=== PATIENT | male | born 1970 | race Two or more races ===

== ENCOUNTER 2019-12-31 13:14 | Inpatient (IN) ==
[2019-12-31] MEDS ORDERED: LEVSIN/MAALOX/LIDOC VISC PO ONE (14:05)
[2019-12-31] MEDS ORDERED: ZOFRAN INJ 4 MG VIAL IVP ONE (14:05)
[2019-12-31] MEDS ORDERED: PROTONIX INJ 40 MG VIAL IVP ONE (14:05)
[2019-12-31] MEDS ORDERED: ZOFRAN INJ 4 MG VIAL ONE (14:10)
[2019-12-31] MEDS ORDERED: PROTONIX INJ 40 MG VIAL ONE (14:11)
--- NOTE | 2019-12-31 14:13 | DR.ABDMALE ---
HPI Time seen Time Seen by Provider: 12/31/19 13:54 PCP Primary Care Physician: LOPEZ Triana Complaint Chief Complaint:: nausea, vomiting, abd. pain Mode of arrival Mode of Arrival: Ambulatory Timing Onset of Chief Complaint: 12/30/19 PMH PMH Past Medical History: Yes Past Medical History: Hypertension Past Surgical History: Yes Surgical History: Appendectomy Family History History of Family Medical Conditions: Yes Family Medical History: Diabetes Mellitus and Hypertension Social History Does patient currently use any type of tobacco product: No Have you used tobacco products in the last 12 months: No Does any household member use tobacco: Yes Alcohol Use: Occasionally Do you use any recreational Drugs:: Yes Lives With: Alone and Spouse Lives Where: Home Infectious screening In the last 2 months have you had wt loss of >10#?: NO Have you had fever, night sweats or hemotysis?: No Have you traveled outside the country in the last 6 months?: No Isolation: Standard ROS Review of Systems Constitutional: Weakness Eyes: No Symptoms Reported ENTM: No Symptoms Reported Respiratoy: No Symptoms Reported Cardiovascular: No Symptoms Reported Gastrointestinal/Abdominal: See HPI Genitourinary: Dysuria Neurological: No Symptoms Reported Musculoskeletal: No Symptoms Reported Integumentary: No Symptoms Reported Hematologic/Lymphatic: No Symptoms Reported Endocrine: No Symptoms Reported Psychiatric: No Symptoms Reported All Other Systems: Reviewed and Negative PE Vital Signs Vital Signs: Temp Pulse Resp BP Pulse Ox 12/31/19 18:03 20 12/31/19 15:56 100 H 20 143/87 96 12/31/19 15:27 20 12/31/19 13:55 123 H 20 168/103 96 12/31/19 13:15 99.1 F 142 H 24 132/89 96 02/13/14 09:12 184/99 General Limitations: No Limitations General Appearance: Alert and Other (pt with nausea ) Head Head Exam: Normal Inspection, Atraumatic and Normocephalic Eyes Eye exam: Normal Appearance, PERRL and EOMI; negative Scleral Icterus, Conjunctival Injection and Nystagmus ENT ENT Exam: Normal Exam, Normal Oropharynx and Mucous Membranes Moist Neck Neck Exam: Normal Inspection, Full ROM and Trachea Midline; negative Tenderness, Meningismus and Lymphadenopathy Chest Chest Inspection: Normal Inspection and Symmetric Chest Wall Rise; negative Tenderness Respiratory Respiratory Exam: Normal Lung Sounds Bilat; negative Accessory Muscle Use and Chest Wall Tenderness Respiratory Exam: Bilateral: Clear to Auscultation Cardiovascular Cardiovascular Exam: Regular Rate, Normal Rhythm and Normal Heart Sounds Abdominal Exam Abdominal Exam: Normal Inspection, Normal Bowel Sounds and Soft; negative Distention, Tenderness, Rebound and Rigidity Rectal Rectal Exam: Deferred Back Back Exam: Normal Inspection and Full ROM; negative Tenderness, (R) CVA Tenderness, (L) CVA Tenderness, Muscle Spasm, Paraspinal Tenderness and Vertebral Tenderness Extremeties Extremities Exam: Normal Inspection and Full ROM; negative Tenderness, Normal Capillary Refill, Edema and Joint Swelling Neurologic Neurological Exam: Alert, Oriented X3 and Normal Gait; negative Motor Sensory Deficit Psychiatric Psychiatric Exam: Normal Affect and Normal Mood; negative Depressed, Agitated, Anxious, Flat Affect, Manic, Homicidal Ideation and Suicidal Ideation Skin Skin Exam: Warm, Dry, Intact and Normal Color; negative Rash, Cyanosis, Diaphoresis, Erythema, Pallor and Mottled ROR Labs Reviewed Result Diagrams: 12/31/19 14:19 12/31/19 14: Laboratory: WBC 17.4 X10^3/uL (3.6-10.0) H 12/31/19 14:19 RBC 5.50 X10^6/uL (4.7-6.0) 12/31/19 14:19 Hgb 16.7 g/dL (13.5-18.0) 12/31/19 14: Hct 49.1 % (42.0-54.0) 12/31/19 14: MCV 89.4 fL (80.0-100.0) 12/31/19 14: MCH 30.3 pg (27.0-34.0) 12/31/19 14: MCHC 33.9 g/dL (33.0-35.0) 12/31/19 14:19 RDW 14.4 % (11.6-16.5) 12/31/19 14: Plt Count 112 X10^3/uL (150.0-450.0) L 12/31/19 14: Plt Count Comment Decreased (ADEQUATE) 12/31/19 14:19 MPV 8.3 fL (7.4-11.0) 12/31/19 14: Neut % (Auto) 92.5 % (42.0-75.0) H 12/31/19 14:19 Lymph % (Auto) 3.8 % (21.0-51.0) L 12/31/19 14:19 Angelina % (Auto) 3.6 % (0.0-13.0) 12/31/19 14:19 Eos % (Auto) 0.0 % (0.9-2.9) L 12/31/19 14:19 Baso % (Auto) 0.1 % (0.2-1.0) L 12/31/19 14:19 Neut # (Auto) 16.1 x10^3/uL (2.2-4.8) H 12/31/19 14:19 Lymph # (Auto) 0.7 X10^3/uL (1.3-2.9) L 12/31/19 14:19 Angelina # (Auto) 0.6 x10^3/uL (0.3-0.8) 12/31/19 14:19 Eos # (Auto) 0.0 x10^3/uL (0.0-0.2) 12/31/19 14:19 Baso # (Auto) 0.0 X10^3/uL (0.0-0.1) 12/31/19 14:19 Absolute Nucleated RBC 0.0 /100WBC 12/31/19 14:19 Total Counted 100 12/31/19 14:19 Neutrophils % (Manual) 86 % (39-76) H 12/31/19 14:19 Band Neutrophils % 6 % (0-10) 12/31/19 14:19 Lymphocytes % (Manual) 7 % (13-43) L 12/31/19 14:19 Monocytes % (Manual) 1 % (4-9) L 12/31/19 14:19 Plt Morphology Comment Normal (NORMAL) 12/31/19 14:19 RBC Morphology Normal (NORMAL) 12/31/19 14:19 Sodium 133 mmol/L (136-145) L 12/31/19 14:19 Corrected Sodium 135 mmol/L (136-145) L 12/31/19 14:19 Potassium 4.1 mmol/L (3.5-5.1) 12/31/19 14:19 Chloride 97 mmol/L (98-107) L 12/31/19 14:19 Carbon Dioxide 24.5 mmol/L (21-32) 12/31/19 14:19 BUN 12 mg/dL (7-18) 12/31/19 14:19 Creatinine 1.30 mg/dL (0.70-1.30) 12/31/19 14:19 Est GFR (MDRD) Af Amer > 60 (>60) 12/31/19 14:19 Est GFR (MDRD) Non-Af > 60 (>60) 12/31/19 14:19 Glucose 172 mg/dL (65-99) H 12/31/19 14:19 Calcium 8.2 mg/dL (8.5-10.1) L 12/31/19 14:19 Corrected Calcium 8.8 mg/dL (8.5-10.1) 12/31/19 14:19 Total Bilirubin 4.40 mg/dL (0.2-1.0) H 12/31/19 14:19 AST 143 Units/L (15-37) H 12/31/19 14:19 ALT 271 Units/L (12-78) H 12/31/19 14:19 Alkaline Phosphatase 114 Units/L (46-116) 12/31/19 14:19 Total Protein 7.0 g/dL (6.4-8.2) 12/31/19 14:19 Albumin 3.2 g/dL (3.4-5.0) L 12/31/19 14:19 Globulin 3.8 g/dL (2.5-4.5) 12/31/19 14:19 Albumin/Globulin Ratio 0.8 Ratio (1.1-2.1) L 12/31/19 14:19 Amylase 86 Units/L (25-115) 12/31/19 14:19 Lipase 964 Units/L (73-393) H 12/31/19 14:19 Opioid Opioid Risk Tool Age (Kwabena box if 16-45): No History of Preadolescent Sexual Abuse: No Total: 0 Total Score Risk Category: Low Risk Copyright: Joshua NUNES predicting aberrant behaviors Diagnosis Discharge Problem: Acute pancreatitis, Deep vein thrombosis of portal vein
[2019-12-31] MEDS ORDERED: LEVSIN/MAALOX/LIDOC VISC ONE (14:14)
[2019-12-31 14:33] LABS: BASOPHILS % (AUTO) 0.1 % (0.2-1.0); HEMATOCRIT 49.1 % (42.0-54.0); HEMOGLOBIN 16.7 g/dL (13.5-18.0); LYMPHOCYTES # (AUTO) 0.7 X10^3/uL (1.3-2.9); LYMPHOCYTES % (AUTO) 3.8 % (21.0-51.0); MEAN CORPUSCULAR HEMOGLOBIN 30.3 pg (27.0-34.0); MEAN CORPUSCULAR HGB CONC 33.9 g/dL (33.0-35.0); MEAN CORPUSCULAR VOLUME 89.4 fL (80.0-100.0); MEAN PLATELET VOLUME 8.3 fL (7.4-11.0); MONOCYTES # (AUTO) 0.6 x10^3/uL (0.3-0.8); MONOCYTES % (AUTO) 3.6 % (0.0-13.0); NEUTROPHILS # (AUTO) 16.1 x10^3/uL (2.2-4.8); NEUTROPHILS % (AUTO) 92.5 % (42.0-75.0); PLATELET COUNT 112 X10^3/uL (150.0-450.0); RED CELL DISTRIBUTION WIDTH 14.4 % (11.6-16.5); WHITE BLOOD COUNT 17.4 X10^3/uL (3.6-10.0)
[2019-12-31] MEDS ORDERED: NS 1000 ML 1,000 ML IV ONE (14:35)
[2019-12-31 14:37] LABS: ALANINE AMINOTRANSFERASE 271 Units/L (12-78); ALBUMIN 3.2 g/dL (3.4-5.0); ALKALINE PHOSPHATASE 114 Units/L (46-116); AMYLASE 86 Units/L (25-115); ASPARTATE AMINO TRANSFERASE 143 Units/L (15-37); BLOOD UREA NITROGEN 12 mg/dL (7-18); CALCIUM 8.2 mg/dL (8.5-10.1); CARBON DIOXIDE 24.5 mmol/L (21-32); CHLORIDE 97 mmol/L (98-107); COR CA(FOR HYPOALB) 8.8 mg/dL (8.5-10.1); COR NA(FOR HYPERGLY) 135 mmol/L (136-145); LIPASE 964 Units/L (73-393); SODIUM 133 mmol/L (136-145); eGFR NON BLACK RACES > 60 (>60)
[2019-12-31] MEDS ORDERED: NS 1000 ML 1,000 ML ONE (14:40)
[2019-12-31 14:49] LABS: BAND NEUTROPHILS % 6 % (0-10); PLATELET MORPHOLOGY COMMENT NORMAL (NORMAL)
--- NOTE | 2019-12-31 15:03 | RAD ---
HISTORYABD PAIN, N/VSTUDYACUTE ABDOMEN SERIESCOMPARISONNoneTECHNIQUEFive view acute abdomen series.FINDINGSThe cardiac and mediastinal contours are within normal limits. The lungs are clear without focal consolidation or segmental collapse. No pleural effusion or pneumothorax.Dilated bowel likely small bowel with air-fluid levels. The bowel measures up to 6 cm in the right upper quadrant. No free air identified. No pneumatosis or portal venous gas. There is gas in the colon.IMPRESSIONFindings consistent with small-bowel obstruction. Consider CT for further evaluation.Electronically signed by: Jean Morgan (Dec 31, 2019 15:03:07)
[2019-12-31] MEDS ORDERED: ZOSYN VIAL 3.375 GRAMS 3.375 G in NS 100 ML IV + SPIKE MINIBAG* 100 ML IV ONE (15:17)
[2019-12-31] MEDS ORDERED: ZOSYN VIAL 3.375 GRAMS IV ONE (15:49)
[2019-12-31] MEDS ORDERED: NS 100 ML IV 100 ML IV ONE (15:50)
[2019-12-31] MEDS ORDERED: CIPRO IV 200 MG PREMIX* 200 MG/100 ML BAG IV ONE (15:56)
[2019-12-31] MEDS ORDERED: FLAGYL IV PREMIX 500 MG BAG 500 MG/100 ML BAG IV ONE ×2 (15:56→15:58)
[2019-12-31] MEDS ORDERED: CIPRO IV 400 MG PREMIX* 400 MG/200 ML IV.SOLN. IV ONE (15:58)
--- NOTE | 2019-12-31 17:43 | CT ---
HISTORYABD PAIN, N/V, SBOSTUDYABDOMEN/PELVIS WITH CONCOMPARISONNoneTECHNIQUEMultiple axial images of the abdomen and pelvis were obtained from the lung bases to the pubic symphysis after the administration of IV contrast. Dose reduction techniques including Automated Exposure Control (AEC) and adjustment of mA and kV were utilized.FINDINGSThe visualized portions of the lung bases demonstrates a tiny 3 mm calcified right lower lobe granuloma.. The liver demonstrates probable fatty infiltration. There is some stranding around the tail of the pancreas and in the lateral conal fascia compatible with acute pancreatitis. The pancreatic tissue appears to enhance normally. There is some associated soft tissue density in the superior mesenteric vein extending into the portal vein compatible with thrombus. There is no evidence for any splenic artery aneurysm at this time. Solid organs otherwise unremarkable in their contrast appearance. The gallbladder is unremarkable in its CT appearance . No significant mesenteric lymphadenopathy or stranding can be observed. No free fluid or free air is seen within the abdomen. No bowel wall thickening or bowel dilatation is present. The colon demonstrates some wall thickening involving the cecum a small amount of contrast this lumen. This may be due to timing of the contrast although follow-up colonoscopy may be of benefit to exclude the possibility underlying lesion.. Specifically, there is no diverticulosis noted within the sigmoid colon. The appendix is not seen there are no secondary signs to suggest appendicitis. The urinary bladder is grossly unremarkable. The bony structures are grossly intact.IMPRESSIONFindings of acute pancreatitis as above with thrombus involving the SMV and portal vein. There is no evidence for pancreatic necrosis or splenic artery aneurysm at this time.Nonspecific cecal wall thickening as aboveProbable fatty liver.Electronically signed by: ASA JIMENEZ (Dec 31, 2019 17:41:52)
[2019-12-31] MEDS ORDERED: DILAUDID INJ ONE (17:54)
[2019-12-31] MEDS ORDERED: D5 1/2 NS 1000 ML 1,000 ML IV ONE (17:58)
[2019-12-31] MEDS: D5 1/2 NS 1000 ML 1,000 ML IV SCH (18:01)
--- NOTE | 2019-12-31 19:04 | US ---
HISTORY:Nausea, vomitingStudy: Right upper quadrant abdominal ultrasoundComparison: CT same dayTechnique: Multiple hargrove scale and color flow Doppler images of the right upper quadrant were obtained.Findings:There is diffuse fatty infiltration of the liver parenchyma. Liver is normal in size. No mass identified. Partially occlusive thrombus seen in the portal vein. Gallbladder appears normal. The common bile duct measures 4 mm. No pericholecystic fluid or gallbladder wall thickening. No sonographic Duffy's sign reported.The right kidney appears normal in size without focal parenchymal mass or nephrolithiasis. The right kidney measures 12 x 6 x 6 centimeters. No evidence of hydronephrosis. Pancreas was obscured by bowel gas. IVC also not visualized.IMPRESSION:1. Fatty infiltration of the liver with partially occlusive thrombus in the portal vein.2. Normal sonographic appearance of the gallbladder.3. Pancreas obscured by bowel gas.Electronically signed by: SHRUTHI HAHN (Dec 31, 2019 19:03:17)
[2019-12-31] MEDS ORDERED: LOVENOX INJ 40 MG SYR SC SCH (21:00)
[2020-01-01] MEDS ORDERED: HEPARIN SODIUM INJ 5000 UNITS IVP ONE (00:39)
[2020-01-01] MEDS: HEPARIN SODIUM IN D5W 25,000 UNITS/500 ML BAG IV PRN ×2 (01:00→22:00)
[2020-01-01 01:21] LABS: BILIRUBIN,URINE 1+ (NEGATIVE); BLOOD/HEMOGLOBIN,URINE 4+ (NEGATIVE); GLUCOSE, URINE NEGATIVE (NEGATIVE); KETONES,URINE 1+ (NEGATIVE); LEUKOCYTE ESTERASE ,URINE 1+ (NEGATIVE); NITRITES,URINE POSITIVE (NEGATIVE); PH,URINE 6.5 (5.0 - 8.0); PROTEIN,URINE 2+ (NEGATIVE); UROBILINOGEN,URINE 4+ (NORMAL)
[2020-01-01] MEDS: D5 1/2 NS 1000 ML 1,000 ML IV SCH ×5 (01:22→22:00)
[2020-01-01 01:32] LABS: APPEARANCE,URINE CLEAR (CLEAR)
[2020-01-01 01:33] LABS: BACTERIA,URINE TRACE /HPF (NEGATIVE); COLOR,URINE ORANGE (YELLOW); RBC,URINE 0-2 /HPF (0-3); SQUAMOUS EPITHELIAL CELL,UR RARE /HPF (NEGATIVE)
[2020-01-01 03:03] VITALS: BMI 39.3
--- NOTE | 2020-01-01 05:53 | RAD ---
HISTORYBOWEL OBSTRUCTION FOLLOW UP HTN, [id number]/14/2020FINDINGSEvaluation of the abdomen demonstrates a gas-filled loops of large and small bowel similar prior study.. . The urinary bladder is opacified. No pathological s oft tissue mass or calcification can be observed. The bony structures are grossly intact.IMPRESSIONG as-filled loops of large and small bowel consistent with small bowel obstruction; no appreciable bourne ge from previous 12/31/2019Electronically signed by: Ck Guevara (Jan 01, 2020 05:52:37)
[2020-01-01] MEDS ORDERED: PROTONIX INJ 40 MG VIAL ONE (07:38)
[2020-01-01 07:41] LABS: BASOPHILS % (AUTO) 0.3 % (0.2-1.0); EOSINOPHILS % (AUTO) 0.3 % (0.9-2.9); HEMATOCRIT 43.2 % (42.0-54.0); HEMOGLOBIN 14.7 g/dL (13.5-18.0); LYMPHOCYTES # (AUTO) 1.5 X10^3/uL (1.3-2.9); LYMPHOCYTES % (AUTO) 10.4 % (21.0-51.0); MEAN CORPUSCULAR HGB CONC 33.9 g/dL (33.0-35.0); MEAN CORPUSCULAR VOLUME 88.5 fL (80.0-100.0); MEAN PLATELET VOLUME 8.5 fL (7.4-11.0); MONOCYTES # (AUTO) 0.8 x10^3/uL (0.3-0.8); MONOCYTES % (AUTO) 5.4 % (0.0-13.0); NEUTROPHILS # (AUTO) 12.4 x10^3/uL (2.2-4.8); NEUTROPHILS % (AUTO) 83.6 % (42.0-75.0); PLATELET COUNT 78 X10^3/uL (150.0-450.0); RED BLOOD COUNT 4.88 X10^6/uL (4.7-6.0); RED CELL DISTRIBUTION WIDTH 14.4 % (11.6-16.5); WHITE BLOOD COUNT 14.8 X10^3/uL (3.6-10.0)
[2020-01-01 07:48] LABS: ALANINE AMINOTRANSFERASE 179 Units/L (12-78); ALBUMIN 2.4 g/dL (3.4-5.0); ALKALINE PHOSPHATASE 91 Units/L (46-116); ASPARTATE AMINO TRANSFERASE 88 Units/L (15-37); BLOOD UREA NITROGEN 10 mg/dL (7-18); CARBON DIOXIDE 27.2 mmol/L (21-32); CHLORIDE 100 mmol/L (98-107); COR CA(FOR HYPOALB) 9.3 mg/dL (8.5-10.1); COR NA(FOR HYPERGLY) 134 mmol/L (136-145); CREATININE 0.83 mg/dL (0.70-1.30); SODIUM 133 mmol/L (136-145); TOTAL PROTEIN 5.9 g/dL (6.4-8.2); eGFR NON BLACK RACES > 60 (>60)
[2020-01-01] MEDS: PROTONIX INJ 40 MG VIAL IVP SCH ×2 (08:00→21:33)
[2020-01-01] MEDS ORDERED: PROTONIX INJ 40 MG VIAL IVP SCH (09:00)
[2020-01-01 09:21] LABS: BLOOD ALCOHOL < 3 mg/dL (0-19.9)
[2020-01-01 09:33] LABS: LACTIC ACID 1.6 mmol/L (0.4-2.0)
--- NOTE | 2020-01-01 10:37 | DR.PROGNOT ---
Hospital Progress Notes - Progress Note for Day of: Progress Note Date: 01/01/20 - Chief Complaint Chief Complaint: still having upper abdominal pain but feeling better . no vomiting today . improving pancreatic enzymes and LFTs. ammonia 53. GB US showed no stones . afebrile . - Past Medical Family Social History Past Med/Fam/Surg Hx: No changes since H&P Allergies: Allergies penicillin G Allergy (Verified 12/31/19 15:36) - Review Of Systems ROS: No change since H&P - Vital Signs Vital Signs: Temperature 97.8 F Pulse Rate [Left] 105 Pulse Rate 100 Respiratory Rate 20 Blood Pressure [Left Arm] 155/82 Blood Pressure 143/87 O2 Sat by Pulse Oximetry 94 - Physical Exam Oriented: Normal Eyes: Other (slightly ecteric ) Ear: Normal Nose: Normal Respiratory: Normal Cardiovascular: Normal : Normal GI:Auscultation: Decreased GI: Tenderness: Epigastric (soft abdomen with epigastric tenderness , no rebound . BS hypoactive .) Skin: Normal Musculoskeletal: Normal Speech Pattern: Clear, Appropriate - Laboratory and Diagnostics Result Diagrams: 01/01/20 07:22 01/01/20 07:22 Labs: Laboratory WBC 14.8 X10^3/uL (3.6-10.0) H 01/01/20 07:22 RBC 4.88 X10^6/uL (4.7-6.0) 01/01/20 07:22 Hgb 14.7 g/dL (13.5-18.0) D 01/01/20 07:22 Hct 43.2 % (42.0-54.0) 01/01/20 07:22 MCV 88.5 fL (80.0-100.0) 01/01/20 07:22 MCH 30.0 pg (27.0-34.0) 01/01/20 07:22 MCHC 33.9 g/dL (33.0-35.0) 01/01/20 07:22 RDW 14.4 % (11.6-16.5) 01/01/20 07:22 Plt Count 78 X10^3/uL (150.0-450.0) L 01/01/20 07:22 Plt Count Comment Decreased (ADEQUATE) 12/31/19 14:19 MPV 8.5 fL (7.4-11.0) 01/01/20 07:22 Neut % (Auto) 83.6 % (42.0-75.0) H 01/01/20 07:22 Lymph % (Auto) 10.4 % (21.0-51.0) L 01/01/20 07:22 [place] % (Auto) 5.4 % (0.0-13.0) 01/01/20 07:22 Eos % (Auto) 0.3 % (0.9-2.9) L 01/01/20 07:22 Baso % (Auto) 0.3 % (0.2-1.0) 01/01/20 07:22 Neut # (Auto) 12.4 x10^3/uL (2.2-4.8) H 01/01/20 07:22 Lymph # (Auto) 1.5 X10^3/uL (1.3-2.9) 01/01/20 07:22 [place] # (Auto) 0.8 x10^3/uL (0.3-0.8) 01/01/20 07:22 Eos # (Auto) 0.0 x10^3/uL (0.0-0.2) 01/01/20 07:22 Baso # (Auto) 0.0 X10^3/uL (0.0-0.1) 01/01/20 07:22 Absolute Nucleated RBC 0.1 /100WBC 01/01/20 07:22 Total Counted 100 12/31/19 14:19 Neutrophils % (Manual) 86 % (39-76) H 12/31/19 14:19 Band Neutrophils % 6 % (0-10) 12/31/19 14:19 Lymphocytes % (Manual) 7 % (13-43) L 12/31/19 14:19 Monocytes % (Manual) 1 % (4-9) L 12/31/19 14:19 Plt Morphology Comment Normal (NORMAL) 12/31/19 14:19 RBC Morphology Normal (NORMAL) 12/31/19 14:19 PT 15.4 SECONDS (11.8-14.3) 01/01/20 07:22 INR Target Range - 01/01/20 07: INR 1.25 (0.8-1.3) 01/01/20 07:22 APTT 107.3 SECONDS (22.9-36.5) H 01/01/20 07:22 PTT Comment - 01/01/20 07:22 Sodium 133 mmol/L (136-145) L 01/01/20 07:22 Corrected Sodium 134 mmol/L (136-145) L 01/01/20 07:22 Potassium 4.0 mmol/L (3.5-5.1) 01/01/20 07:22 Chloride 100 mmol/L (98-107) 01/01/20 07:22 Carbon Dioxide 27.2 mmol/L (21-32) 01/01/20 07:22 BUN 10 mg/dL (7-18) 01/01/20 07:22 Creatinine 0.83 mg/dL (0.70-1.30) 01/01/20 07:22 Est GFR (MDRD) Af Amer > 60 (>60) 01/01/20 07:22 Est GFR (MDRD) Non-Af > 60 (>60) 01/01/20 07:22 Glucose 128 mg/dL (65-99) H 01/01/20 07:22 POC Glucose (mg/dL) 139 mg/dL (65-99) H 01/01/20 05:23 Lactic Acid 1.6 mmol/L (0.4-2.0) 01/01/20 08:50 Calcium 8.0 mg/dL (8.5-10.1) L 01/01/20 07:22 Corrected Calcium 9.3 mg/dL (8.5-10.1) 01/01/20 07:22 Total Bilirubin 3.30 mg/dL (0.2-1.0) H 01/01/20 07:22 AST 88 Units/L (15-37) H 01/01/20 07:22 ALT 179 Units/L (12-78) H 01/01/20 07:22 Alkaline Phosphatase 91 Units/L (46-116) 01/01/20 07:22 Ammonia 53 umol/L (11-32) H 01/01/20 08:50 Total Protein 5.9 g/dL (6.4-8.2) L 01/01/20 07:22 Albumin 2.4 g/dL (3.4-5.0) L 01/01/20 07:22 Globulin 3.5 g/dL (2.5-4.5) 01/01/20 07:22 Albumin/Globulin Ratio 0.7 Ratio (1.1-2.1) L 01/01/20 07:22 Amylase 86 Units/L (25-115) 12/31/19 14:19 Lipase 964 Units/L (73-393) H 12/31/19 14:19 Specimen Type Clean catch urine 01/01/20 00:30 Urine Color [place] (YELLOW) 01/01/20 00:30 Urine Appearance Clear (CLEAR) 01/01/20 00:30 Urine pH 6.5 (5.0 - 8.0) 01/01/20 00:30 Ur Specific [place] 1.010 (1.000-1.030) 01/01/20 00:30 Urine Protein 2+ (NEGATIVE) 01/01/20 00:30 Urine Glucose (UA) Negative (NEGATIVE) 01/01/20 00:30 Urine Ketones 1+ (NEGATIVE) 01/01/20 00:30 Urine Occult Blood 4+ (NEGATIVE) 01/01/20 00:30 Urine Nitrite Positive (NEGATIVE) 01/01/20 00:30 Urine Bilirubin 1+ (NEGATIVE) 01/01/20 00:30 Urine Urobilinogen 4+ (NORMAL) 01/01/20 00:30 Ur Leukocyte Esterase 1+ (NEGATIVE) 01/01/20 00:30 Urine RBC 0-2 /HPF (0-3) 01/01/20 00:30 Urine WBC 0-2 /HPF (0-5) 01/01/20 00:30 Ur Squamous Epith Cells Rare /HPF (NEGATIVE) 01/01/20 00:30 Urine Bacteria Trace /HPF (NEGATIVE) 01/01/20 00:30 Ur Culture Indicated? No/not indicated 01/01/20 00:30 Ethyl Alcohol mg/dL < 3 mg/dL (0-19.9) 01/01/20 08:50 - Assessment and Plan 1: improving acute pancreatitis . thrombus in SMV ( related to pancreatitis ). alcohol abuse . fatty liver . same NPO . IVF . ATB . Antyicoagulant . - Problem Patient Problems: Patient Problems Acute pancreatitis (Acute) K85.90 Deep vein thrombosis of portal vein (Acute) I81
[2020-01-01] MEDS: DILAUDID INJ IVP PRN (11:55)
--- NOTE | 2020-01-01 18:28 | DR.H&P ---
H&P - History & Physical for Day of: H&P Date: 01/01/20 - Chief Complaint Chief Complaint: ABDOMINAL PAIN, [place] - History of Present Illness History of Present Illness: PT IS 49 HM ER ADMISSION AFTER PRESENTING WITH CO INTRACTABLE ABDOMINAL PAIN, N/V. PT REPORTS HX OF HYPERTENSION, NO DM OR CARDIAC DISEASE. PT DENIES ANY KNOWN COVID EXPOSURE, FEVER, SOB, OR CCC. PT HAD CT ABD PELVIS IN ER WITH ACUTE PACREATITIS AND HEPATIC VENOUS THROMBUS. PT ADMITTED TO ICU ON HEPARIN DRIP. - Past Medical History Past Medical History: Hypertension - Past Surgical History Surgical History: Appendectomy - Family History Family Medical History: Diabetes Mellitus, Hypertension - Social History Does patient currently use any type of tobacco product: No Have you used tobacco products in the last 12 months: No Does any household member use tobacco: Yes Alcohol Use: Occasionally, Heavy Drug Use: None - Medications Home Medications: penicillin G Allergy (Verified 12/31/19 15:36) CONTINUE taking the following medications lisinopril 40 mg PO DAILY 12/31/19 [History] - Review of Systems Constitutional: Weakness Eyes: No Symptoms Reported ENT: No Symptoms Reported Respiratory: denies: Shortness of Breath Cardiovascular: denies: Chest Pain Gastrointestinal: Nausea, Vomiting, Abdominal Pain, Diarrhea Genitourinary: No Symptoms Reported Musculoskeletal: No Symptoms Reported Skin: No Symptoms Reported Neurological: No Symptoms Reported - Physical Exam Vital Signs: Temperature 98.4 F Pulse Rate [Left] 108 Pulse Rate 100 Respiratory Rate 20 Blood Pressure [Left Arm] 143/79 Blood Pressure 143/87 O2 Sat by Pulse Oximetry 94 Oriented: Normal Eyes: Normal Ear: Normal Nose: Normal Throat: Normal Respiratory: Clear Throughout Cardiovascular: Normal. negative: Edema : Normal Auscultation: Bowel Sounds: Normal Tenderness: Diffuse, LUQ Skin: Decreased Turgur Musculoskeletal: Normal Psychiatric: Normal Mood Description: Calm Speech Pattern: Clear, Appropriate - Assessment/Plan (1) Acute pancreatitis Status: Acute Plan: ADMIT, NPO. SURGICAL CONSULT, HEPARIN DRIP. STRICT I&OS, IV HYDRATION PAIN CONTROL. LACTIC ACID LEVEL, AMMONIA LEVEL. IV ATBX THERAPY, PPI THERAPY, PT/PTT/INR. VERIFY HOME MEDICATION, CARDIAC MONITORING (2) Splenic vein thrombosis Status: Acute (3) Acute liver disease Status: Acute (4) Hypertension Qualifiers: Hypertension type: renovascular hypertension Qualified Code(s): I15.0 - Renovascular hypertension Status: Acute (5) Deep vein thrombosis of portal vein Status: Acute - Allergies Allergies/Adverse Reactions: Allergies Allergy/AdvReac Type Severity Reaction Status Date / Time penicillin G Allergy Verified 12/31/19 15:36
[2020-01-01] MEDS ORDERED: CIPRO IV 200 MG PREMIX* 200 MG/100 ML BAG IV ONE (21:27)
[2020-01-01] MEDS: CIPRO IV 200 MG PREMIX* 200 MG/100 ML BAG IV SCH (22:03)
[2020-01-02] MEDS: D5 1/2 NS 1000 ML 1,000 ML IV SCH ×5 (03:08→20:27)
[2020-01-02] MEDS: DILAUDID INJ IVP PRN ×3 (03:56→22:19)
[2020-01-02 04:20] LABS: BASOPHILS % (AUTO) 0.2 % (0.2-1.0); EOSINOPHILS # (AUTO) 0.1 x10^3/uL (0.0-0.2); EOSINOPHILS % (AUTO) 0.6 % (0.9-2.9); HEMATOCRIT 39.1 % (42.0-54.0); HEMOGLOBIN 13.3 g/dL (13.5-18.0); LYMPHOCYTES % (AUTO) 17.7 % (21.0-51.0); MEAN CORPUSCULAR HEMOGLOBIN 30.3 pg (27.0-34.0); MEAN CORPUSCULAR HGB CONC 34.1 g/dL (33.0-35.0); MEAN CORPUSCULAR VOLUME 88.9 fL (80.0-100.0); MEAN PLATELET VOLUME 8.5 fL (7.4-11.0); MONOCYTES # (AUTO) 0.8 x10^3/uL (0.3-0.8); MONOCYTES % (AUTO) 7.5 % (0.0-13.0); NEUTROPHILS # (AUTO) 8.3 x10^3/uL (2.2-4.8); PLATELET COUNT 78 X10^3/uL (150.0-450.0); RED CELL DISTRIBUTION WIDTH 14.2 % (11.6-16.5); WHITE BLOOD COUNT 11.2 X10^3/uL (3.6-10.0)
[2020-01-02 04:29] LABS: ALANINE AMINOTRANSFERASE 129 Units/L (12-78); ALBUMIN 2.2 g/dL (3.4-5.0); ALKALINE PHOSPHATASE 82 Units/L (46-116); ASPARTATE AMINO TRANSFERASE 54 Units/L (15-37); BLOOD UREA NITROGEN 7 mg/dL (7-18); CALCIUM 7.8 mg/dL (8.5-10.1); CARBON DIOXIDE 31.7 mmol/L (21-32); CHLORIDE 99 mmol/L (98-107); COR CA(FOR HYPOALB) 9.2 mg/dL (8.5-10.1); COR NA(FOR HYPERGLY) 133 mmol/L (136-145); CREATININE 0.75 mg/dL (0.70-1.30); SODIUM 132 mmol/L (136-145); TOTAL PROTEIN 5.8 g/dL (6.4-8.2); eGFR NON BLACK RACES > 60 (>60)
[2020-01-02] MEDS ORDERED: POTASSIUM CHL 60 MEQ/NS 0.45% 500 ML IV PRN (07:34)
[2020-01-02] MEDS ORDERED: POTASSIUM CHL 40 MEQ/NS 0.45% 500 ML IV PRN (07:34)
[2020-01-02] MEDS: PROTONIX INJ 40 MG VIAL IVP SCH ×2 (08:30→20:26)
[2020-01-02] MEDS: CIPRO IV 200 MG PREMIX* 200 MG/100 ML BAG IV SCH ×2 (08:30→20:25)
[2020-01-02 08:54] LABS: AMYLASE 40 Units/L (25-115); LIPASE 432 Units/L (73-393)
[2020-01-02] MEDS: ZESTRIL TAB 5 MG PO SCH (10:40)
[2020-01-02] MEDS: K-RIDER 10 MEQ/NS 100 ML 10 MEQ/100 ML BAG IV PRN ×2 (14:10→16:15)
--- NOTE | 2020-01-02 14:11 | DR.PROGNOT ---
Hospital Progress Notes - Progress Note for Day of: Progress Note Date: 01/02/20 - Chief Complaint Chief Complaint: feeling better . no vomiting today . improving pancreatic enzymes and LFTs. ammonia 53. GB US showed no stones . afebrile . - Past Medical Family Social History Past Med/Fam/Surg Hx: No changes since H&P Allergies: Allergies penicillin G Allergy (Verified 12/31/19 15:36) - Review Of Systems ROS: No change since H&P - Vital Signs Vital Signs: Temperature 98.0 F Pulse Rate [Left] 93 Pulse Rate 100 Respiratory Rate 20 Blood Pressure [Left Arm] 155/73 Blood Pressure 143/87 O2 Sat by Pulse Oximetry 94 - Physical Exam Oriented: Normal Eyes: Other (slightly ecteric ) Ear: Normal Nose: Normal Respiratory: Normal Cardiovascular: Normal : Normal GI:Auscultation: Decreased GI: Tenderness: Epigastric (soft abdomen with epigastric tenderness , no rebound . BS hypoactive .) Skin: Normal Musculoskeletal: Normal Speech Pattern: Appropriate - Laboratory and Diagnostics Result Diagrams: 01/02/20 04:00 01/02/20 04:00 Labs: 12/31/19 15:35 Blood Blood Culture - Preliminary 12/31/19 15:30 Blood Blood Culture - Preliminary Laboratory WBC 11.2 X10^3/uL (3.6-10.0) H 01/02/20 04:00 RBC 4.40 X10^6/uL (4.7-6.0) L 01/02/20 04:00 Hgb 13.3 g/dL (13.5-18.0) L 01/02/20 04:00 Hct 39.1 % (42.0-54.0) L 01/02/20 04:00 MCV 88.9 fL (80.0-100.0) 01/02/20 04:00 MCH 30.3 pg (27.0-34.0) 01/02/20 04:00 MCHC 34.1 g/dL (33.0-35.0) 01/02/20 04:00 RDW 14.2 % (11.6-16.5) 01/02/20 04:00 Plt Count 78 X10^3/uL (150.0-450.0) L 01/02/20 04:00 Plt Count Comment Decreased (ADEQUATE) 12/31/19 14:19 MPV 8.5 fL (7.4-11.0) 01/02/20 04:00 Neut % (Auto) 74.0 % (42.0-75.0) 01/02/20 04:00 Lymph % (Auto) 17.7 % (21.0-51.0) L 01/02/20 04:00 [place] % (Auto) 7.5 % (0.0-13.0) 01/02/20 04:00 Eos % (Auto) 0.6 % (0.9-2.9) L 01/02/20 04:00 Baso % (Auto) 0.2 % (0.2-1.0) 01/02/20 04:00 Neut # (Auto) 8.3 x10^3/uL (2.2-4.8) H 01/02/20 04:00 Lymph # (Auto) 2.0 X10^3/uL (1.3-2.9) 01/02/20 04:00 [place] # (Auto) 0.8 x10^3/uL (0.3-0.8) 01/02/20 04:00 Eos # (Auto) 0.1 x10^3/uL (0.0-0.2) 01/02/20 04:00 Baso # (Auto) 0.0 X10^3/uL (0.0-0.1) 01/02/20 04:00 Absolute Nucleated RBC 0.0 /100WBC 01/02/20 04:00 Total Counted 100 12/31/19 14:19 Neutrophils % (Manual) 86 % (39-76) H 12/31/19 14:19 Band Neutrophils % 6 % (0-10) 12/31/19 14:19 Lymphocytes % (Manual) 7 % (13-43) L 12/31/19 14:19 Monocytes % (Manual) 1 % (4-9) L 12/31/19 14:19 Plt Morphology Comment Normal (NORMAL) 12/31/19 14:19 RBC Morphology Normal (NORMAL) 12/31/19 14:19 PT 14.3 SECONDS (11.8-14.3) 01/02/20 09:39 INR Target Range - 01/02/20 09:39 INR 1.14 (0.8-1.3) 01/02/20 09:39 APTT 104.3 SECONDS (22.9-36.5) H 01/02/20 09:39 PTT Comment - 01/02/20 09:39 Sodium 132 mmol/L (136-145) L 01/02/20 04:00 Corrected Sodium 133 mmol/L (136-145) L 01/02/20 04:00 Potassium 3.5 mmol/L (3.5-5.1) 01/02/20 04:00 Chloride 99 mmol/L (98-107) 01/02/20 04:00 Carbon Dioxide 31.7 mmol/L (21-32) 01/02/20 04:00 BUN 7 mg/dL (7-18) 01/02/20 04:00 Creatinine 0.75 mg/dL (0.70-1.30) 01/02/20 04:00 Est GFR (MDRD) Af Amer > 60 (>60) 01/02/20 04:00 Est GFR (MDRD) Non-Af > 60 (>60) 01/02/20 04:00 Glucose 126 mg/dL (65-99) H 01/02/20 04:00 POC Glucose (mg/dL) 124 mg/dL (65-99) H 01/01/20 21:22 Lactic Acid 1.6 mmol/L (0.4-2.0) 01/01/20 08:50 Calcium 7.8 mg/dL (8.5-10.1) L 01/02/20 04:00 Corrected Calcium 9.2 mg/dL (8.5-10.1) 01/02/20 04:00 Magnesium 1.9 mg/dL (1.7-2.9) 01/02/20 04:00 Total Bilirubin 3.30 mg/dL (0.2-1.0) H 01/02/20 04:00 AST 54 Units/L (15-37) H 01/02/20 04:00 ALT 129 Units/L (12-78) H 01/02/20 04:00 Alkaline Phosphatase 82 Units/L (46-116) 01/02/20 04:00 Ammonia 53 umol/L (11-32) H 01/01/20 08:50 Total Protein 5.8 g/dL (6.4-8.2) L 01/02/20 04:00 Albumin 2.2 g/dL (3.4-5.0) L 01/02/20 04:00 Globulin 3.6 g/dL (2.5-4.5) 01/02/20 04:00 Albumin/Globulin Ratio 0.6 Ratio (1.1-2.1) L 01/02/20 04:00 Amylase 40 Units/L (25-115) 01/02/20 04:00 Lipase 432 Units/L (73-393) H 01/02/20 04:00 Specimen Type Clean catch urine 01/01/20 00:30 Urine Color [place] (YELLOW) 01/01/20 00:30 Urine Appearance Clear (CLEAR) 01/01/20 00:30 Urine pH 6.5 (5.0 - 8.0) 01/01/20 00:30 Ur Specific [place] 1.010 (1.000-1.030) 01/01/20 00:30 Urine Protein 2+ (NEGATIVE) 01/01/20 00:30 Urine Glucose (UA) Negative (NEGATIVE) 01/01/20 00:30 Urine Ketones 1+ (NEGATIVE) 01/01/20 00:30 Urine Occult Blood 4+ (NEGATIVE) 01/01/20 00:30 Urine Nitrite Positive (NEGATIVE) 01/01/20 00:30 Urine Bilirubin 1+ (NEGATIVE) 01/01/20 00:30 Urine Urobilinogen 4+ (NORMAL) 01/01/20 00:30 Ur Leukocyte Esterase 1+ (NEGATIVE) 01/01/20 00:30 Urine RBC 0-2 /HPF (0-3) 01/01/20 00:30 Urine WBC 0-2 /HPF (0-5) 01/01/20 00:30 Ur Squamous Epith Cells Rare /HPF (NEGATIVE) 01/01/20 00:30 Urine Bacteria Trace /HPF (NEGATIVE) 01/01/20 00:30 Ur Culture Indicated? No/not indicated 01/01/20 00:30 Ethyl Alcohol mg/dL < 3 mg/dL (0-19.9) 01/01/20 08:50 - Assessment and Plan 1: improving acute pancreatitis . thrombus in SMV ( related to pancreatitis ). alcohol abuse . fatty liver . on clear liquid . IVF . ATB . Antyicoagulant . - Problem Patient Problems: Patient Problems Acute pancreatitis (Acute) K85.90 Deep vein thrombosis of portal vein (Acute) I81
[2020-01-02] MEDS: HEPARIN SODIUM IN D5W 25,000 UNITS/500 ML BAG IV PRN (18:29)
[2020-01-02] MEDS ORDERED: ELIQUIS ONE (19:54)
[2020-01-02] MEDS: ELIQUIS PO SCH (20:25)
[2020-01-03] MEDS: D5 1/2 NS 1000 ML 1,000 ML IV SCH ×6 (01:32→23:31)
[2020-01-03 06:09] LABS: ALANINE AMINOTRANSFERASE 102 Units/L (12-78); ALBUMIN 2.3 g/dL (3.4-5.0); ALKALINE PHOSPHATASE 83 Units/L (46-116); AMYLASE 70 Units/L (25-115); ASPARTATE AMINO TRANSFERASE 42 Units/L (15-37); BLOOD UREA NITROGEN 7 mg/dL (7-18); CALCIUM 7.9 mg/dL (8.5-10.1); CARBON DIOXIDE 28.6 mmol/L (21-32); CHLORIDE 98 mmol/L (98-107); COR CA(FOR HYPOALB) 9.3 mg/dL (8.5-10.1); COR NA(FOR HYPERGLY) 133 mmol/L (136-145); CREATININE 0.81 mg/dL (0.70-1.30); LIPASE 654 Units/L (73-393); SODIUM 132 mmol/L (136-145); TOTAL PROTEIN 6.1 g/dL (6.4-8.2); eGFR NON BLACK RACES > 60 (>60)
[2020-01-03 06:11] LABS: BASOPHILS % (AUTO) 0.3 % (0.2-1.0); EOSINOPHILS # (AUTO) 0.1 x10^3/uL (0.0-0.2); EOSINOPHILS % (AUTO) 1.3 % (0.9-2.9); LYMPHOCYTES # (AUTO) 1.9 X10^3/uL (1.3-2.9); LYMPHOCYTES % (AUTO) 17.9 % (21.0-51.0); MEAN CORPUSCULAR HEMOGLOBIN 30.4 pg (27.0-34.0); MEAN CORPUSCULAR HGB CONC 34.2 g/dL (33.0-35.0); MONOCYTES # (AUTO) 1.5 x10^3/uL (0.3-0.8); MONOCYTES % (AUTO) 14.5 % (0.0-13.0); PLATELET COUNT 88 X10^3/uL (150.0-450.0); RED BLOOD COUNT 4.27 X10^6/uL (4.7-6.0); RED CELL DISTRIBUTION WIDTH 14.1 % (11.6-16.5); WHITE BLOOD COUNT 10.6 X10^3/uL (3.6-10.0)
[2020-01-03] MEDS ORDERED: MILK OF MAGNESIA PO PRN (07:28)
[2020-01-03] MEDS ORDERED: COLACE CAP 100 MG PO PRN (07:28)
--- NOTE | 2020-01-03 08:14 | CT ---
HISTORYACUTE PANCREATITIS FOLLW UPSTUDYABDOMEN/PELVIS WITH [id number] axial images of the abdomen and pelvis were obtained from the lung bases to the pubic symphysis after the administration of IV contrast. Dose reduction techniques including Automated Exposure Control (AEC) and adjustment of mA and kV were utilized.FINDINGSNew small left pleural effusion with adjacent compressive atelectasis in the left base.No acute osseous abnormality.Hepatic steatosis. The gallbladder, spleen, bilateral adrenal glands, and bilateral kidneys demonstrate no significant abnormality. Increasing edema surrounding the pancreatic head and tail.No evidence of bowel obstruction. Oral contrast is seen to the rectum. The appendix is not visualized. No secondary signs of appendicitis.The bladder is unremarkable. No free air. Non aneurysmal aorta. Similar thrombus in the SMV.IMPRESSIONAcute interstitial edematous pancreatitis with slightly increased peripancreatic edema compared to 12/31/2019 exam.Similar thrombus in the SMV.Electronically signed by: CHAZ MORALES (Jan 03, 2020 08:13:49)
[2020-01-03] MEDS: DILAUDID INJ IVP PRN ×2 (08:37→17:34)
[2020-01-03] MEDS: PROTONIX INJ 40 MG VIAL IVP SCH ×2 (08:39→20:51)
[2020-01-03] MEDS: CIPRO IV 200 MG PREMIX* 200 MG/100 ML BAG IV SCH ×2 (08:39→20:51)
[2020-01-03] MEDS: ZESTRIL TAB 5 MG PO SCH ×2 (08:39→08:46)
[2020-01-03] MEDS: ELIQUIS PO SCH (08:39)
[2020-01-03] MEDS ORDERED: ZESTRIL TAB 20 MG PO SCH (09:00)
--- NOTE | 2020-01-03 09:55 | DR.PROGNOT ---
Hospital Progress Notes - Progress Note for Day of: Progress Note Date: 01/03/20 - Chief Complaint Chief Complaint: stil having upper abdominal pain . low grade temp . repeated CT showed mild edemal around the pancrease consistent with pancreatitis . no necrosis or thrombosis of the prtal vein or SMV . WBC 10.6 LIPASE 654. BUN, Creatini normal .Bilirubin 2.4 . Ammonia 31 ( normal ) - Past Medical Family Social History Past Med/Fam/Surg Hx: No changes since H&P Allergies: Allergies penicillin G Allergy (Verified 12/31/19 15:36) - Review Of Systems ROS: No change since H&P - Vital Signs Vital Signs: Temperature 99.1 F Pulse Rate [Left] 107 Pulse Rate 100 Respiratory Rate 20 Blood Pressure [Left Arm] 182/85 Blood Pressure 143/87 O2 Sat by Pulse Oximetry 94 - Physical Exam Oriented: Normal Eyes: Normal Ear: Normal Nose: Normal Throat: Normal Respiratory: Normal Cardiovascular: Normal. negative: Edema : Normal GI:Auscultation: Normal GI: Tenderness: Diffuse, LUQ Skin: Decreased Turgur Musculoskeletal: Normal Psychiatric: Normal Mood Description: Calm Speech Pattern: Clear, Appropriate - Laboratory and Diagnostics Result Diagrams: 01/03/20 05:25 01/03/20 05:25 Labs: 12/31/19 15:35 Blood Blood Culture - Preliminary 12/31/19 15:30 Blood Blood Culture - Preliminary Laboratory WBC 10.6 X10^3/uL (3.6-10.0) H 01/03/20 05:25 RBC 4.27 X10^6/uL (4.7-6.0) L 01/03/20 05:25 Hgb 13.0 g/dL (13.5-18.0) L 01/03/20 05:25 Hct 38.0 % (42.0-54.0) L 01/03/20 05:25 MCV 89.0 fL (80.0-100.0) 01/03/20 05:25 MCH 30.4 pg (27.0-34.0) 01/03/20 05:25 MCHC 34.2 g/dL (33.0-35.0) 01/03/20 05:25 RDW 14.1 % (11.6-16.5) 01/03/20 05:25 Plt Count 88 X10^3/uL (150.0-450.0) L 01/03/20 05:25 Plt Count Comment Decreased (ADEQUATE) 12/31/19 14:19 MPV 8.0 fL (7.4-11.0) 01/03/20 05:25 Neut % (Auto) 66.0 % (42.0-75.0) 01/03/20 05:25 Lymph % (Auto) 17.9 % (21.0-51.0) L 01/03/20 05:25 [place] % (Auto) 14.5 % (0.0-13.0) H 01/03/20 05:25 Eos % (Auto) 1.3 % (0.9-2.9) 01/03/20 05:25 Baso % (Auto) 0.3 % (0.2-1.0) 01/03/20 05:25 Neut # (Auto) 7.0 x10^3/uL (2.2-4.8) H 01/03/20 05:25 Lymph # (Auto) 1.9 X10^3/uL (1.3-2.9) 01/03/20 05:25 [place] # (Auto) 1.5 x10^3/uL (0.3-0.8) H 01/03/20 05:25 Eos # (Auto) 0.1 x10^3/uL (0.0-0.2) 01/03/20 05:25 Baso # (Auto) 0.0 X10^3/uL (0.0-0.1) 01/03/20 05:25 Absolute Nucleated RBC 0.1 /100WBC 01/03/20 05:25 Total Counted 100 12/31/19 14:19 Neutrophils % (Manual) 86 % (39-76) H 12/31/19 14:19 Band Neutrophils % 6 % (0-10) 12/31/19 14:19 Lymphocytes % (Manual) 7 % (13-43) L 12/31/19 14:19 Monocytes % (Manual) 1 % (4-9) L 12/31/19 14:19 Plt Morphology Comment Normal (NORMAL) 12/31/19 14:19 RBC Morphology Normal (NORMAL) 12/31/19 14:19 PT 14.3 SECONDS (11.8-14.3) 01/02/20 09:39 INR Target Range - 01/02/20 09:39 INR 1.14 (0.8-1.3) 01/02/20 09:39 APTT 39.2 SECONDS (22.9-36.5) H 01/03/20 05:25 PTT Comment - 01/03/20 05:25 Sodium 132 mmol/L (136-145) L 01/03/20 05:25 Corrected Sodium 133 mmol/L (136-145) L 01/03/20 05:25 Potassium 3.1 mmol/L (3.5-5.1) L 01/03/20 05:25 Chloride 98 mmol/L (98-107) 01/03/20 05:25 Carbon Dioxide 28.6 mmol/L (21-32) 01/03/20 05:25 BUN 7 mg/dL (7-18) 01/03/20 05:25 Creatinine 0.81 mg/dL (0.70-1.30) 01/03/20 05:25 Est GFR (MDRD) Af Amer > 60 (>60) 01/03/20 05:25 Est GFR (MDRD) Non-Af > 60 (>60) 01/03/20 05:25 Glucose 122 mg/dL (65-99) H 01/03/20 05:25 POC Glucose (mg/dL) 124 mg/dL (65-99) H 01/01/20 21:22 Lactic Acid 1.6 mmol/L (0.4-2.0) 01/01/20 08:50 Calcium 7.9 mg/dL (8.5-10.1) L 01/03/20 05:25 Corrected Calcium 9.3 mg/dL (8.5-10.1) 01/03/20 05:25 Magnesium 2.1 mg/dL (1.7-2.9) 01/03/20 05:25 Total Bilirubin 2.40 mg/dL (0.2-1.0) H 01/03/20 05:25 AST 42 Units/L (15-37) H 01/03/20 05:25 ALT 102 Units/L (12-78) H 01/03/20 05:25 Alkaline Phosphatase 83 Units/L (46-116) 01/03/20 05:25 Ammonia 31 umol/L (11-32) 01/03/20 07:10 Total Protein 6.1 g/dL (6.4-8.2) L 01/03/20 05:25 Albumin 2.3 g/dL (3.4-5.0) L 01/03/20 05:25 Globulin 3.8 g/dL (2.5-4.5) 01/03/20 05:25 Albumin/Globulin Ratio 0.6 Ratio (1.1-2.1) L 01/03/20 05:25 Amylase 70 Units/L (25-115) 01/03/20 05:25 Lipase 654 Units/L (73-393) H 01/03/20 05:25 Specimen Type Clean catch urine 01/01/20 00:30 Urine Color [place] (YELLOW) 01/01/20 00:30 Urine Appearance Clear (CLEAR) 01/01/20 00:30 Urine pH 6.5 (5.0 - 8.0) 01/01/20 00:30 Ur Specific [place] 1.010 (1.000-1.030) 01/01/20 00:30 Urine Protein 2+ (NEGATIVE) 01/01/20 00:30 Urine Glucose (UA) Negative (NEGATIVE) 01/01/20 00:30 Urine Ketones 1+ (NEGATIVE) 01/01/20 00:30 Urine Occult Blood 4+ (NEGATIVE) 01/01/20 00:30 Urine Nitrite Positive (NEGATIVE) 01/01/20 00:30 Urine Bilirubin 1+ (NEGATIVE) 01/01/20 00:30 Urine Urobilinogen 4+ (NORMAL) 01/01/20 00:30 Ur Leukocyte Esterase 1+ (NEGATIVE) 01/01/20 00:30 Urine RBC 0-2 /HPF (0-3) 01/01/20 00:30 Urine WBC 0-2 /HPF (0-5) 01/01/20 00:30 Ur Squamous Epith Cells Rare /HPF (NEGATIVE) 01/01/20 00:30 Urine Bacteria Trace /HPF (NEGATIVE) 01/01/20 00:30 Ur Culture Indicated? No/not indicated 01/01/20 00:30 Ethyl Alcohol mg/dL < 3 mg/dL (0-19.9) 01/01/20 08:50 - Assessment and Plan 1: acute pancreatitis . thrombus in SMV had resolved. alcohol abuse . fatty liver . on clear liquid . IVF . ATB . Antyicoagulant . only liquid diet still . - Problem Patient Problems: Patient Problems Acute pancreatitis (Acute) K85.90 Deep vein thrombosis of portal vein (Acute) I81 Acute liver disease (Acute) K76.9 Hypertension (Acute) I10 Splenic vein thrombosis (Acute) I82.890
[2020-01-03 10:06] LABS: BILIRUBIN,URINE NEGATIVE (NEGATIVE); BLOOD/HEMOGLOBIN,URINE 3+ (NEGATIVE); GLUCOSE, URINE 1+ (NEGATIVE); KETONES,URINE NEGATIVE (NEGATIVE); LEUKOCYTE ESTERASE ,URINE NEGATIVE (NEGATIVE); NITRITES,URINE NEGATIVE (NEGATIVE); PROTEIN,URINE NEGATIVE (NEGATIVE); UROBILINOGEN,URINE 3+ (NORMAL)
[2020-01-03 10:13] LABS: APPEARANCE,URINE CLEAR (CLEAR); COLOR,URINE YELLOW (YELLOW)
[2020-01-03 10:14] LABS: BACTERIA,URINE NEGATIVE /HPF (NEGATIVE); RBC,URINE 0-2 /HPF (0-3); SQUAMOUS EPITHELIAL CELL,UR RARE /HPF (NEGATIVE)
[2020-01-03] MEDS ORDERED: BENTYL CAP 10 MG PO ONE ×2 (17:36→17:42)
[2020-01-03] MEDS ORDERED: ZESTRIL TAB 20 MG PO ONE (17:36)
[2020-01-03] MEDS ORDERED: PEPCID 20 MG IV PREMIX* 20 MG/50 ML BAG IV ONE (17:42)
[2020-01-03] MEDS ORDERED: ZESTRIL TAB 20 MG ONE (17:42)
[2020-01-03] MEDS: PEPCID 20 MG IV PREMIX* 20 MG/50 ML BAG IV ONE (17:48)
[2020-01-03 19:24] LABS: AMYLASE 70 Units/L (25-115); LIPASE 629 Units/L (73-393)
[2020-01-03] MEDS ORDERED: HEPARIN SODIUM INJ 5000 UNITS IVP ONE (21:00)
[2020-01-03] MEDS: HEPARIN SODIUM IN D5W 25,000 UNITS/500 ML BAG IV PRN (21:59)
[2020-01-04] MEDS: D5 1/2 NS 1000 ML 1,000 ML IV SCH (04:41)
[2020-01-04 06:13] LABS: ALANINE AMINOTRANSFERASE 89 Units/L (12-78); ALBUMIN 2.2 g/dL (3.4-5.0); ALKALINE PHOSPHATASE 85 Units/L (46-116); AMYLASE 84 Units/L (25-115); ASPARTATE AMINO TRANSFERASE 42 Units/L (15-37); BLOOD UREA NITROGEN 6 mg/dL (7-18); CALCIUM 8.2 mg/dL (8.5-10.1); CARBON DIOXIDE 28.5 mmol/L (21-32); CHLORIDE 100 mmol/L (98-107); COR CA(FOR HYPOALB) 9.6 mg/dL (8.5-10.1); COR NA(FOR HYPERGLY) 135 mmol/L (136-145); CREATININE 0.81 mg/dL (0.70-1.30); LIPASE 724 Units/L (73-393); SODIUM 134 mmol/L (136-145); TOTAL PROTEIN 6.2 g/dL (6.4-8.2); eGFR NON BLACK RACES > 60 (>60)
[2020-01-04 06:16] LABS: BASOPHILS % (AUTO) 0.2 % (0.2-1.0); EOSINOPHILS # (AUTO) 0.1 x10^3/uL (0.0-0.2); EOSINOPHILS % (AUTO) 1.3 % (0.9-2.9); HEMATOCRIT 36.1 % (42.0-54.0); HEMOGLOBIN 12.4 g/dL (13.5-18.0); LYMPHOCYTES # (AUTO) 1.8 X10^3/uL (1.3-2.9); LYMPHOCYTES % (AUTO) 20.5 % (21.0-51.0); MEAN CORPUSCULAR HEMOGLOBIN 30.6 pg (27.0-34.0); MEAN CORPUSCULAR HGB CONC 34.5 g/dL (33.0-35.0); MEAN CORPUSCULAR VOLUME 88.6 fL (80.0-100.0); MEAN PLATELET VOLUME 7.7 fL (7.4-11.0); MONOCYTES # (AUTO) 1.8 x10^3/uL (0.3-0.8); MONOCYTES % (AUTO) 20.2 % (0.0-13.0); NEUTROPHILS # (AUTO) 5.1 x10^3/uL (2.2-4.8); NEUTROPHILS % (AUTO) 57.8 % (42.0-75.0); PLATELET COUNT 106 X10^3/uL (150.0-450.0); RED BLOOD COUNT 4.07 X10^6/uL (4.7-6.0); RED CELL DISTRIBUTION WIDTH 13.9 % (11.6-16.5); WHITE BLOOD COUNT 8.9 X10^3/uL (3.6-10.0)
[2020-01-04] MEDS ORDERED: D5 1/2 NS + KCL 20 MEQ/L 1,000 ML IV ONE (06:40)
[2020-01-04] MEDS: D5 1/2 NS + KCL 20 MEQ/L 1,000 ML IV SCH ×2 (06:42→19:19)
[2020-01-04 06:59] LABS: BAND NEUTROPHILS % 5 % (0-10)
[2020-01-04 07:00] LABS: PLATELET MORPHOLOGY COMMENT NORMAL (NORMAL)
[2020-01-04] MEDS ORDERED: ZESTRIL TAB 20 MG ONE ×2 (08:09→20:02)
[2020-01-04] MEDS: CIPRO IV 200 MG PREMIX* 200 MG/100 ML BAG IV SCH ×2 (09:14→20:29)
[2020-01-04] MEDS: PROTONIX INJ 40 MG VIAL IVP SCH ×2 (09:15→20:30)
[2020-01-04] MEDS: ZESTRIL TAB 20 MG PO SCH ×2 (09:15→20:30)
[2020-01-04] MEDS: BENTYL CAP 10 MG PO PRN ×2 (09:15→16:45)
[2020-01-04] MEDS ORDERED: KLOR-CON PO PRN (10:17)
[2020-01-04] MEDS ORDERED: MICRO K EXTEN CAP 10 MEQ PO PRN (10:17)
[2020-01-04] MEDS ORDERED: POTASSIUM CHL 40 MEQ/NS 0.45% 500 ML IV PRN (10:17)
[2020-01-04] MEDS ORDERED: K-RIDER 10 MEQ/NS 100 ML 10 MEQ/100 ML BAG IV PRN (10:17)
[2020-01-04] MEDS ORDERED: POTASSIUM CHL 60 MEQ/NS 0.45% 500 ML IV PRN (10:17)
[2020-01-04] MEDS ORDERED: POTASSIUM CHLORIDE LIQ 20 MEQ UDC PO PRN (10:17)
[2020-01-04] MEDS ORDERED: K-DUR TAB 20 MEQ PO PRN (10:17)
[2020-01-04] MEDS ORDERED: HEPARIN SODIUM INJ 5000 UNITS IVP ONE (10:36)
[2020-01-04] MEDS ORDERED: HEPARIN SODIUM INJ 5000 UNITS ONE (10:44)
--- NOTE | 2020-01-04 10:59 | DR.PROGNOT ---
Hospital Progress Notes - Progress Note for Day of: Progress Note Date: 01/04/20 - Chief Complaint Chief Complaint: feeling better today . less abdominal pain and passing flatus . tolerating clear liuid . WBC is normal . Lipase is 724, Bilirubi 1.3 , ALT 89,. afebrile - Past Medical Family Social History Past Med/Fam/Surg Hx: No changes since H&P Allergies: Allergies penicillin G Allergy (Verified 12/31/19 15:36) - Review Of Systems ROS: No change since H&P - Vital Signs Vital Signs: Temperature 98.0 F Pulse Rate [Left] 88 Pulse Rate 100 Respiratory Rate 18 Blood Pressure [Left Arm] 146/84 Blood Pressure 143/87 O2 Sat by Pulse Oximetry 96 - Physical Exam Oriented: Normal Eyes: Normal Ear: Normal Nose: Normal Throat: Normal Respiratory: Normal Cardiovascular: Normal. negative: Edema : Normal GI:Auscultation: Normal GI: Tenderness: Diffuse, LUQ Skin: Decreased Turgur Musculoskeletal: Normal Psychiatric: Normal Mood Description: Calm Speech Pattern: Clear, Appropriate - Laboratory and Diagnostics Result Diagrams: 01/04/20 05:20 01/04/20 05:20 Labs: 01/03/20 09:35 Urine,Clean Catch Urine Culture - Preliminary 12/31/19 15:35 Blood Blood Culture - Preliminary 12/31/19 15:30 Blood Blood Culture - Preliminary Laboratory WBC 8.9 X10^3/uL (3.6-10.0) 01/04/20 05:20 RBC 4.07 X10^6/uL (4.7-6.0) L 01/04/20 05:20 Hgb 12.4 g/dL (13.5-18.0) L 01/04/20 05:20 Hct 36.1 % (42.0-54.0) L 01/04/20 05:20 MCV 88.6 fL (80.0-100.0) 01/04/20 05:20 MCH 30.6 pg (27.0-34.0) 01/04/20 05:20 MCHC 34.5 g/dL (33.0-35.0) 01/04/20 05:20 RDW 13.9 % (11.6-16.5) 01/04/20 05:20 Plt Count 106 X10^3/uL (150.0-450.0) L 01/04/20 05:20 Plt Count Comment Decreased (ADEQUATE) 01/04/20 05:20 MPV 7.7 fL (7.4-11.0) 01/04/20 05:20 Neut % (Auto) 57.8 % (42.0-75.0) 01/04/20 05:20 Lymph % (Auto) 20.5 % (21.0-51.0) L 01/04/20 05:20 [place] % (Auto) 20.2 % (0.0-13.0) H 01/04/20 05:20 Eos % (Auto) 1.3 % (0.9-2.9) 01/04/20 05:20 Baso % (Auto) 0.2 % (0.2-1.0) 01/04/20 05:20 Neut # (Auto) 5.1 x10^3/uL (2.2-4.8) H 01/04/20 05:20 Lymph # (Auto) 1.8 X10^3/uL (1.3-2.9) 01/04/20 05:20 [place] # (Auto) 1.8 x10^3/uL (0.3-0.8) H 01/04/20 05:20 Eos # (Auto) 0.1 x10^3/uL (0.0-0.2) 01/04/20 05:20 Baso # (Auto) 0.0 X10^3/uL (0.0-0.1) 01/04/20 05:20 Absolute Nucleated RBC 0.1 /100WBC 01/04/20 05:20 Total Counted 100 01/04/20 05:20 Neutrophils % (Manual) 63 % (39-76) 01/04/20 05:20 Band Neutrophils % 5 % (0-10) 01/04/20 05:20 Lymphocytes % (Manual) 25 % (13-43) 01/04/20 05:20 Monocytes % (Manual) 7 % (4-9) 01/04/20 05:20 Plt Morphology Comment Normal (NORMAL) 01/04/20 05:20 RBC Morphology Normal (NORMAL) 01/04/20 05:20 PT 14.3 SECONDS (11.8-14.3) 01/02/20 09:39 INR Target Range - 01/02/20 09:39 INR 1.14 (0.8-1.3) 01/02/20 09:39 APTT 39.2 SECONDS (22.9-36.5) H 01/04/20 09:45 PTT Comment - 01/04/20 09:45 Sodium 134 mmol/L (136-145) L 01/04/20 05:20 Corrected Sodium 135 mmol/L (136-145) L 01/04/20 05:20 Potassium 3.0 mmol/L (3.5-5.1) L* 01/04/20 05:20 Chloride 100 mmol/L (98-107) 01/04/20 05:20 Carbon Dioxide 28.5 mmol/L (21-32) 01/04/20 05:20 BUN 6 mg/dL (7-18) L 01/04/20 05:20 Creatinine 0.81 mg/dL (0.70-1.30) 01/04/20 05:20 Est GFR (MDRD) Af Amer > 60 (>60) 01/04/20 05:20 Est GFR (MDRD) Non-Af > 60 (>60) 01/04/20 05:20 Glucose 126 mg/dL (65-99) H 01/04/20 05:20 POC Glucose (mg/dL) 124 mg/dL (65-99) H 01/01/20 21:22 Lactic Acid 1.6 mmol/L (0.4-2.0) 01/01/20 08:50 Calcium 8.2 mg/dL (8.5-10.1) L 01/04/20 05:20 Corrected Calcium 9.6 mg/dL (8.5-10.1) 01/04/20 05:20 Magnesium 2.2 mg/dL (1.7-2.9) 01/04/20 05:20 Total Bilirubin 1.30 mg/dL (0.2-1.0) H 01/04/20 05:20 AST 42 Units/L (15-37) H 01/04/20 05:20 ALT 89 Units/L (12-78) H 01/04/20 05:20 Alkaline Phosphatase 85 Units/L (46-116) 01/04/20 05:20 Ammonia 31 umol/L (11-32) 01/03/20 07:10 Total Protein 6.2 g/dL (6.4-8.2) L 01/04/20 05:20 Albumin 2.2 g/dL (3.4-5.0) L 01/04/20 05:20 Globulin 4.0 g/dL (2.5-4.5) 01/04/20 05:20 Albumin/Globulin Ratio 0.6 Ratio (1.1-2.1) L 01/04/20 05:20 Amylase 84 Units/L (25-115) 01/04/20 05:20 Lipase 724 Units/L (73-393) H 01/04/20 05:20 Specimen Type Clean catch urine 01/03/20 09:35 Urine Color [place] (YELLOW) 01/03/20 09:35 Urine Appearance Clear (CLEAR) 01/03/20 09:35 Urine pH 7.0 (5.0 - 8.0) 01/03/20 09:35 Ur Specific [place] 1.010 (1.000-1.030) 01/03/20 09:35 Urine Protein Negative (NEGATIVE) 01/03/20 09:35 Urine Glucose (UA) 1+ (NEGATIVE) 01/03/20 09:35 Urine Ketones Negative (NEGATIVE) 01/03/20 09:35 Urine Occult Blood 3+ (NEGATIVE) 01/03/20 09:35 Urine Nitrite Negative (NEGATIVE) 01/03/20 09:35 Urine Bilirubin Negative (NEGATIVE) 01/03/20 09:35 Urine Urobilinogen 3+ (NORMAL) 01/03/20 09:35 Ur Leukocyte Esterase Negative (NEGATIVE) 01/03/20 09:35 Urine RBC 0-2 /HPF (0-3) 01/03/20 09:35 Urine WBC 0-2 /HPF (0-5) 01/03/20 09:35 Ur Squamous Epith Cells Rare /HPF (NEGATIVE) 01/03/20 09:35 Urine Bacteria Negative /HPF (NEGATIVE) 01/03/20 09:35 Ur Culture Indicated? No/not indicated 01/03/20 09:35 Ethyl Alcohol mg/dL < 3 mg/dL (0-19.9) 01/01/20 08:50 - Assessment and Plan 1: subsiding acute pancreatitis ( even Lipase is higher ). thrombus in SMV and portal vein had dissolved . alcohol abuse . fatty liver . on full liquid . IVF . ATB . Anticoagulant . on full diet . - Problem Patient Problems: Patient Problems Acute pancreatitis (Acute) K85.90 Deep vein thrombosis of portal vein (Acute) I81 Acute liver disease (Acute) K76.9 Hypertension (Acute) I10 Splenic vein thrombosis (Acute) I82.890
[2020-01-04] MEDS: HEPARIN SODIUM IN D5W 25,000 UNITS/500 ML BAG IV PRN ×2 (19:26→22:37)
[2020-01-05 04:08] LABS: BASOPHILS % (AUTO) 0.2 % (0.2-1.0); EOSINOPHILS # (AUTO) 0.1 x10^3/uL (0.0-0.2); EOSINOPHILS % (AUTO) 1.5 % (0.9-2.9); HEMATOCRIT 39.9 % (42.0-54.0); HEMOGLOBIN 13.4 g/dL (13.5-18.0); LYMPHOCYTES # (AUTO) 2.4 X10^3/uL (1.3-2.9); LYMPHOCYTES % (AUTO) 26.8 % (21.0-51.0); MEAN CORPUSCULAR HEMOGLOBIN 30.6 pg (27.0-34.0); MEAN CORPUSCULAR HGB CONC 33.6 g/dL (33.0-35.0); MEAN CORPUSCULAR VOLUME 91.1 fL (80.0-100.0); MEAN PLATELET VOLUME 7.9 fL (7.4-11.0); MONOCYTES # (AUTO) 1.9 x10^3/uL (0.3-0.8); MONOCYTES % (AUTO) 20.5 % (0.0-13.0); NEUTROPHILS # (AUTO) 4.6 x10^3/uL (2.2-4.8); PLATELET COUNT 135 X10^3/uL (150.0-450.0); RED BLOOD COUNT 4.38 X10^6/uL (4.7-6.0); RED CELL DISTRIBUTION WIDTH 14.2 % (11.6-16.5); WHITE BLOOD COUNT 9.1 X10^3/uL (3.6-10.0)
[2020-01-05 04:19] LABS: ALANINE AMINOTRANSFERASE 95 Units/L (12-78); ALBUMIN 2.5 g/dL (3.4-5.0); ALKALINE PHOSPHATASE 88 Units/L (46-116); AMYLASE 107 Units/L (25-115); ASPARTATE AMINO TRANSFERASE 43 Units/L (15-37); BLOOD UREA NITROGEN 5 mg/dL (7-18); CALCIUM 8.5 mg/dL (8.5-10.1); CARBON DIOXIDE 30.7 mmol/L (21-32); CHLORIDE 100 mmol/L (98-107); COR CA(FOR HYPOALB) 9.7 mg/dL (8.5-10.1); COR NA(FOR HYPERGLY) 137 mmol/L (136-145); CREATININE 0.93 mg/dL (0.70-1.30); LIPASE 1007 Units/L (73-393); SODIUM 136 mmol/L (136-145); TOTAL PROTEIN 6.8 g/dL (6.4-8.2); eGFR NON BLACK RACES > 60 (>60)
[2020-01-05] MEDS ORDERED: HEPARIN SODIUM INJ 5000 UNITS IVP ONE (04:35)
[2020-01-05 04:38] LABS: PLATELET MORPHOLOGY COMMENT NORMAL (NORMAL)
[2020-01-05] MEDS ORDERED: HEPARIN SODIUM INJ 5000 UNITS ONE (04:38)
[2020-01-05] MEDS ORDERED: ZESTRIL TAB 20 MG ONE (07:53)
[2020-01-05] MEDS: CIPRO IV 200 MG PREMIX* 200 MG/100 ML BAG IV SCH (08:56)
[2020-01-05] MEDS: ZESTRIL TAB 20 MG PO SCH (08:57)
[2020-01-05 10:24] VITALS: BP 123/72
[2020-01-05] MEDS: PROTONIX INJ 40 MG VIAL IVP SCH (10:32)
--- NOTE | 2020-01-05 10:32 | W.DIS.FURT ---
Summary of Discharge Discharge Summary of Date Date of Exam: 01/05/20 Admission Date Date of Admission: 01/01/20 Admission Diagnosis Patient Problems (Updated 01/02/20 @ 18:27 by CARISA PATEL) Acute pancreatitis (Acute) K85.90 Deep vein thrombosis of portal vein (Acute) I81 Acute liver disease (Acute) K76.9 Hypertension (Acute) I10 Splenic vein thrombosis (Acute) I82.890 Hospital Course: Mr. Read is a 49y/o male who presented with intractable abdominal pain and N/V. He has a hx of HTN, no CAD or DM. Patient denies fever or chills, no SOB or COVID exposure. CTAP done in the ED was concerning for acute pancreatitis and hepatic venous thrombus. He was admitted to ICU for heparin drip. His labs were monitored daily and electrolytes replaced as needed. He was kept NPO. He was also started on IVF and Rocephin. Dr. Petit was consulted as well. Patient had repeat imaging KUB which showed SBO. He was kept NPO with IVF and pain control. His repeat CTAP on 01/02 showed no obstruction but showed insterstial pancreatitis and SMV thrombus. U/S was negative for gall bladder disease. His symptoms improved and he was started on clears. His diet was gradually advanced as per surgery recommendations. Patien's total bilirubin trended down to 1. He had no more abdominal pain or N/V/D. He was tolerating low fat diet. Patient was stable for discharge as per surgery. He was switched over to Eliquis for discharge. He will follow up with PCP in [address] Petit in 2 weeks. Vital Signs: Vital Signs (72 hours) 01/02/20 11:00 01/02/20 12:00 01/02/20 13:00 Temperature 98.0 F Pulse Rate [Left] 93 H 93 H 93 H Respiratory Rate 20 20 20 Blood Pressure [Left Arm] 155/73 179/79 187/86 O2 Sat by Pulse Oximetry 94 L 94 L 94 L 01/02/20 14:00 01/02/20 15:00 01/02/20 15:40 Temperature 98.3 F 98.3 F Pulse Rate [Left] 115 H 112 H Respiratory Rate 20 20 Blood Pressure [Left Arm] 197/91 185/86 O2 Sat by Pulse Oximetry 92 L 93 L 01/02/20 16:00 01/02/20 16:15 01/02/20 16:45 Temperature Pulse Rate [Left] 97 H Respiratory Rate 20 18 18 Blood Pressure [Left Arm] 182/79 O2 Sat by Pulse Oximetry 95 01/02/20 17:00 01/02/20 18:00 01/02/20 19:00 Temperature 98.0 F Pulse Rate [Left] 93 H 91 H 99 H Respiratory Rate 20 20 20 Blood Pressure [Left Arm] 179/79 165/74 142/68 O2 Sat by Pulse Oximetry 92 L 92 L 94 L 01/02/20 20:00 01/02/20 21:00 01/02/20 22:00 Temperature Pulse Rate [Left] 100 H 91 H 104 H Respiratory Rate 20 20 20 Blood Pressure [Left Arm] 157/74 179/76 180/77 O2 Sat by Pulse Oximetry 94 L 95 94 L 01/02/20 22:19 01/02/20 22:49 01/02/20 23:00 Temperature 98.9 F Pulse Rate [Left] 107 H Respiratory Rate 18 18 18 Blood Pressure [Left Arm] 179/78 O2 Sat by Pulse Oximetry 93 L 01/03/20 00:00 01/03/20 01:00 01/03/20 02:00 Temperature Pulse Rate [Left] 109 H 114 H 111 H Respiratory Rate 18 22 20 Blood Pressure [Left Arm] 184/81 170/78 175/82 O2 Sat by Pulse Oximetry 92 L 93 L 93 L 01/03/20 03:00 01/03/20 04:00 01/03/20 05:00 Temperature 99.7 F H Pulse Rate [Left] 114 H 115 H 101 H Respiratory Rate 20 22 20 Blood Pressure [Left Arm] 177/81 178/79 181/84 O2 Sat by Pulse Oximetry 93 L 94 L 96 01/03/20 06:00 01/03/20 07:00 01/03/20 08:00 Temperature 99.1 F Pulse Rate [Left] 98 H 107 H 132 H Respiratory Rate 20 20 20 Blood Pressure [Left Arm] 181/82 182/85 143/79 O2 Sat by Pulse Oximetry 95 94 L 96 01/03/20 08:37 01/03/20 09:00 01/03/20 09:07 Temperature Pulse Rate [Left] 131 H Respiratory Rate 20 22 20 Blood Pressure [Left Arm] 151/78 O2 Sat by Pulse Oximetry 96 01/03/20 10:00 01/03/20 11:00 01/03/20 12:00 Temperature 98.0 F Pulse Rate [Left] 97 H 101 H 100 H Respiratory Rate 20 20 20 Blood Pressure [Left Arm] 151/83 141/79 144/73 O2 Sat by Pulse Oximetry 96 94 L 95 01/03/20 13:00 01/03/20 14:00 01/03/20 15:00 Temperature Pulse Rate [Left] 93 H 88 86 Respiratory Rate 20 20 20 Blood Pressure [Left Arm] 146/70 179/85 188/83 O2 Sat by Pulse Oximetry 96 96 96 01/03/20 16:00 01/03/20 17:00 01/03/20 17:34 Temperature 98.5 F Pulse Rate [Left] 93 H 89 Respiratory Rate 22 22 20 Blood Pressure [Left Arm] 186/87 187/88 O2 Sat by Pulse Oximetry 96 94 L 01/03/20 18:00 01/03/20 18:04 01/03/20 19:00 Temperature 98.3 F 98.4 F Pulse Rate [Left] 97 H 104 H Respiratory Rate 20 20 20 Blood Pressure [Left Arm] 120/78 147/90 O2 Sat by Pulse Oximetry 96 95 01/03/20 20:00 01/03/20 20:07 01/03/20 21:00 Temperature Pulse Rate [Left] 97 H 97 H 85 Respiratory Rate 20 20 20 Blood Pressure [Left Arm] 141/82 141/82 139/83 O2 Sat by Pulse Oximetry 95 95 97 01/03/20 22:00 01/03/20 23:00 01/04/20 00:00 Temperature 98.0 F Pulse Rate [Left] 91 H 101 H 85 Respiratory Rate 20 20 16 Blood Pressure [Left Arm] 166/93 145/80 139/75 O2 Sat by Pulse Oximetry 96 97 97 01/04/20 01:00 01/04/20 02:00 01/04/20 03:00 Temperature 98.2 F Pulse Rate [Left] 93 H 97 H 96 H Respiratory Rate 18 20 20 Blood Pressure [Left Arm] 143/84 129/60 151/90 O2 Sat by Pulse Oximetry 96 95 96 01/04/20 04:00 01/04/20 05:00 01/04/20 06:00 Temperature Pulse Rate [Left] 96 H 88 93 H Respiratory Rate 20 16 16 Blood Pressure [Left Arm] 122/66 143/83 125/58 O2 Sat by Pulse Oximetry 92 L 94 L 94 L 01/04/20 07:00 01/04/20 08:00 01/04/20 09:00 Temperature 98.0 F 98.0 F Pulse Rate [Left] 88 88 92 H Respiratory Rate 18 18 20 Blood Pressure [Left Arm] 146/84 146/84 142/74 O2 Sat by Pulse Oximetry 96 96 96 01/04/20 10:00 01/04/20 11:00 01/04/20 12:00 Temperature Pulse Rate [Left] 95 H 95 H 88 Respiratory Rate 20 18 18 Blood Pressure [Left Arm] 137/80 140/81 131/81 O2 Sat by Pulse Oximetry 96 96 95 01/04/20 13:00 01/04/20 14:00 01/04/20 15:00 Temperature 98.8 F Pulse Rate [Left] 90 94 H 93 H Respiratory Rate 18 18 18 Blood Pressure [Left Arm] 131/70 131/73 130/72 O2 Sat by Pulse Oximetry 95 96 96 01/04/20 16:00 01/04/20 17:00 01/04/20 18:00 Temperature Pulse Rate [Left] 92 H 108 H 104 H Respiratory Rate 18 20 20 Blood Pressure [Left Arm] 130/66 130/74 131/62 O2 Sat by Pulse Oximetry 97 95 96 01/04/20 19:00 01/04/20 20:00 01/04/20 21:00 Temperature 100.0 F H Pulse Rate [Left] 97 H 94 H 97 H Respiratory Rate 20 22 20 Blood Pressure [Left Arm] 149/74 143/74 142/97 O2 Sat by Pulse Oximetry 97 97 97 01/04/20 22:00 01/04/20 23:00 01/05/20 00:00 Temperature 98.1 F 98.1 F Pulse Rate [Left] 87 88 87 Respiratory Rate 22 20 22 Blood Pressure [Left Arm] 142/83 147/76 135/85 O2 Sat by Pulse Oximetry 97 99 97 01/05/20 01:00 01/05/20 02:00 01/05/20 03:00 Temperature 98.0 F Pulse Rate [Left] 90 84 84 Respiratory Rate 18 18 18 Blood Pressure [Left Arm] 135/75 132/76 137/90 O2 Sat by Pulse Oximetry 96 96 97 01/05/20 04:00 01/05/20 05:00 01/05/20 06:00 Temperature 98.0 F Pulse Rate [Left] 88 86 87 Respiratory Rate 18 18 20 Blood Pressure [Left Arm] 167/87 136/68 134/70 O2 Sat by Pulse Oximetry 97 98 98 01/05/20 07:00 01/05/20 08:00 01/05/20 09:00 Temperature 98.7 F Pulse Rate [Left] 86 95 H 86 Respiratory Rate 20 18 20 Blood Pressure [Left Arm] 132/81 139/71 136/76 O2 Sat by Pulse Oximetry 96 96 98 01/05/20 10:00 Temperature Pulse Rate [Left] 83 Respiratory Rate 20 Blood Pressure [Left Arm] 123/72 O2 Sat by Pulse Oximetry 98 Labs: Laboratory Last Values WBC 9.1 X10^3/uL (3.6-10.0) 01/05/20 03:50 RBC 4.38 X10^6/uL (4.7-6.0) L 01/05/20 03:50 Hgb 13.4 g/dL (13.5-18.0) L 01/05/20 03:50 Hct 39.9 % (42.0-54.0) L 01/05/20 03:50 MCV 91.1 fL (80.0-100.0) 01/05/20 03:50 MCH 30.6 pg (27.0-34.0) 01/05/20 03:50 MCHC 33.6 g/dL (33.0-35.0) 01/05/20 03:50 RDW 14.2 % (11.6-16.5) 01/05/20 03:50 Plt Count 135 X10^3/uL (150.0-450.0) L 01/05/20 03:50 Plt Count Comment Adequate (ADEQUATE) 01/05/20 03:50 MPV 7.9 fL (7.4-11.0) 01/05/20 03:50 Neut % (Auto) 51.0 % (42.0-75.0) 01/05/20 03:50 Lymph % (Auto) 26.8 % (21.0-51.0) 01/05/20 03:50 [place] % (Auto) 20.5 % (0.0-13.0) H 01/05/20 03:50 Eos % (Auto) 1.5 % (0.9-2.9) 01/05/20 03:50 Baso % (Auto) 0.2 % (0.2-1.0) 01/05/20 03:50 Neut # (Auto) 4.6 x10^3/uL (2.2-4.8) 01/05/20 03:50 Lymph # (Auto) 2.4 X10^3/uL (1.3-2.9) 01/05/20 03:50 [place] # (Auto) 1.9 x10^3/uL (0.3-0.8) H 01/05/20 03:50 Eos # (Auto) 0.1 x10^3/uL (0.0-0.2) 01/05/20 03:50 Baso # (Auto) 0.0 X10^3/uL (0.0-0.1) 01/05/20 03:50 Absolute Nucleated RBC 0.1 /100WBC 01/05/20 03:50 Total Counted 100 01/05/20 03:50 Neutrophils % (Manual) 41 % (39-76) 01/05/20 03:50 Band Neutrophils % 5 % (0-10) 01/04/20 05:20 Lymphocytes % (Manual) 43 % (13-43) 01/05/20 03:50 Monocytes % (Manual) 13 % (4-9) H 01/05/20 03:50 Eosinophils % (Manual) 3 % (0-6) 01/05/20 03:50 Plt Morphology Comment Normal (NORMAL) 01/05/20 03:50 RBC Morphology Normal (NORMAL) 01/05/20 03:50 PT 14.3 SECONDS (11.8-14.3) 01/02/20 09:39 INR Target Range - 01/02/20 09:39 INR 1.14 (0.8-1.3) 01/02/20 09:39 APTT 56.1 SECONDS (22.9-36.5) H 01/05/20 03:50 PTT Comment - 01/05/20 03:50 Sodium 136 mmol/L (136-145) 01/05/20 03:50 Corrected Sodium 137 mmol/L (136-145) 01/05/20 03:50 Potassium 3.4 mmol/L (3.5-5.1) L 01/05/20 03:50 Chloride 100 mmol/L (98-107) 01/05/20 03:50 Carbon Dioxide 30.7 mmol/L (21-32) 01/05/20 03:50 BUN 5 mg/dL (7-18) L 01/05/20 03:50 Creatinine 0.93 mg/dL (0.70-1.30) 01/05/20 03:50 Est GFR (MDRD) Af Amer > 60 (>60) 01/05/20 03:50 Est GFR (MDRD) Non-Af > 60 (>60) 01/05/20 03:50 Glucose 125 mg/dL (65-99) H 01/05/20 03:50 POC Glucose (mg/dL) 124 mg/dL (65-99) H 01/01/20 21:22 Lactic Acid 1.6 mmol/L (0.4-2.0) 01/01/20 08:50 Calcium 8.5 mg/dL (8.5-10.1) 01/05/20 03:50 Corrected Calcium 9.7 mg/dL (8.5-10.1) 01/05/20 03:50 Magnesium 2.2 mg/dL (1.7-2.9) 01/04/20 05:20 Total Bilirubin 1.00 mg/dL (0.2-1.0) 01/05/20 03:50 AST 43 Units/L (15-37) H 01/05/20 03:50 ALT 95 Units/L (12-78) H 01/05/20 03:50 Alkaline Phosphatase 88 Units/L (46-116) 01/05/20 03:50 Ammonia 31 umol/L (11-32) 01/03/20 07:10 Total Protein 6.8 g/dL (6.4-8.2) 01/05/20 03:50 Albumin 2.5 g/dL (3.4-5.0) L 01/05/20 03:50 Globulin 4.3 g/dL (2.5-4.5) 01/05/20 03:50 Albumin/Globulin Ratio 0.6 Ratio (1.1-2.1) L 01/05/20 03:50 Amylase 107 Units/L (25-115) 01/05/20 03:50 Lipase 1007 Units/L (73-393) H 01/05/20 03:50 Specimen Type Clean catch urine 01/03/20 09:35 Urine Color Yellow (YELLOW) 01/03/20 09:35 Urine Appearance Clear (CLEAR) 01/03/20 09:35 Urine pH 7.0 (5.0 - 8.0) 01/03/20 09:35 Ur Specific [place] 1.010 (1.000-1.030) 01/03/20 09:35 Urine Protein Negative (NEGATIVE) 01/03/20 09:35 Urine Glucose (UA) 1+ (NEGATIVE) 01/03/20 09:35 Urine Ketones Negative (NEGATIVE) 01/03/20 09:35 Urine Occult Blood 3+ (NEGATIVE) 01/03/20 09:35 Urine Nitrite Negative (NEGATIVE) 01/03/20 09:35 Urine Bilirubin Negative (NEGATIVE) 01/03/20 09:35 Urine Urobilinogen 3+ (NORMAL) 01/03/20 09:35 Ur Leukocyte Esterase Negative (NEGATIVE) 01/03/20 09:35 Urine RBC 0-2 /HPF (0-3) 01/03/20 09:35 Urine WBC 0-2 /HPF (0-5) 01/03/20 09:35 Ur Squamous Epith Cells Rare /HPF (NEGATIVE) 01/03/20 09:35 Urine Bacteria Negative /HPF (NEGATIVE) 01/03/20 09:35 Ur Culture Indicated? 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 Pt is to keep follow up appointment as instructed and take medications as ordered. Discharge Medications Discharge Medications: penicillin G Allergy (Verified 12/31/19 15:36) CONTINUE taking the following medications lisinopril 40 mg PO DAILY 12/31/19 [History] New Prescriptions apixaban [Eliquis DVT-PE Treat 30D Start] See Rx Instructions .ROUTE .COMPLEX #[id number] ea 01/05/20 [Rx] pantoprazole 40 mg PO BID 30 Days #60 tab 01/05/20 [Rx] Follow up and Referral Follow Up: 1 Week (PCP) 2 Weeks (Dr. Petit ) Discharge Disposition Discharge Disposition: home Discharge Condition: stable
== END 2020-01-05 11:35 | disposition home or self-care (01) | DRG 438 ==
LOC: ER 13:14 → MED/SURG 18:34
PROVIDERS: ADMIT Internal Medicine; ATTEND Internal Medicine
DX: F10.10 Alcohol abuse, uncomplicated; I81 Portal vein thrombosis; K85.90 Acute pancreatitis without necrosis or infection, unspecified; I15.0 Renovascular hypertension; R94.5 Abnormal results of liver function studies; Z79.899 Other long term (current) drug therapy; I82.890 Acute embolism and thrombosis of other specified veins; R10.84 Generalized abdominal pain; K76.89 Other specified diseases of liver; Z79.01 Long term (current) use of anticoagulants